=== PATIENT | female | born 1990 | race Caucasian/White ===

== ENCOUNTER 2017-01-26 03:34 | Emergency (ER) | payer OTHER ==
[~2017-01-26] VITALS: Ht 167.6 cm; Wt 136.3 kg
[~2017-01-26 03:34] MED LIST: Ibuprofen PO; PREN1TAB73 PO
[2017-01-26 03:36] VITALS: BP 180/105; PULSE 83; RESP 16; O2SAT 99
--- NOTE | 2017-01-26 03:50 | ED.REPORT ---
HPI-Back Pain Under 40 Date of Service Jan 26, 2017 ED Provider: Derek Ruby MD The patient is a 26 year old female five days with a history of a heart murmur and ADHD who presents to the ED with upper back pain onset yesterday. The pain radiates down her right side and is exacerbated by deep breathing. The patient also reports recent hypertension and insomnia. She denies cough, hemoptysis, fever, or other symptoms. The patient has used Ibuprofen and Hydrocodone, with no relief. Nursing Notes Stated Complaint: BACK PAIN Chief Complaint: Back Pain or Injury Nursing Notes Reviewed: Yes Allergies: Coded Allergies: cephalexin (Verified Allergy, Severe, Rash,Itching,SOB, 12/12/14) nitrofurantoin (Verified Allergy, Severe, N/V, THROAT SWELLING, 06/23/09) Scheduled Vit/Iron Fumarate/FA ( Vitamin Tablet) 1 Each Tablet 1 EACH PO DAILY Scheduled PRN ([Ibuprofen]) 800 MG TABLET 800 MG PO Q6 PRN PRN For Pain General Time Seen by MD: 03:42 Chief Complaint Thoracic pain Hx Obtained From: Patient Arrived By: Walk-in Sudden in Onset?: No Onset Occurred: Yesterday Symptom Duration: Since onset Caused by: Spontaneous/no mechanism Location: : Perispinal thoracic Quality: Painful Severity: Current: Moderate Severity: Maximum: Moderate Pertinent Negative: Relieved by nothing Recent Healthcare: Recent hospitalization Past Medical History Past Medical History Heart murmur ADHD Past Surgical History Kidney surgeries Ureter and bladder surgeries Smoking History Current Some Day Smoker Social History Other Social History: Lives with children Ambulatory Status Independent Review of Systems Review of Systems Note: + Recent hypertension Constitutional: Denies: Fever Respiratory: Denies: Hemoptysis, Non-productive cough, Shortness of breath GI: Denies: Diarrhea, Vomiting Musculoskeletal: Reports: Back pain (Upper, with radiation down right side) Complete sys rev & neg: except as marked. Psychiatric: Reports: Insomnia Physical Exam Initial Vital Signs Vital Signs (First) Date Time Temp Pulse Resp B/P Pulse Ox O2 Delivery O2 Flow Rate FiO2 01/26/17 03:36 36.8 83 16 180/105 99 Initial VS: Reviewed, Vital signs abnormal Head / Eyes: Atraumatic, Normocephalic ENT: Conjunctiva normal, No scleral icterus Neck: Supple, Full range of motion Respiratory: Breath sounds normal, Clear to auscultation, No respiratory distress Cardiovascular: Regular rate & rhythm, Heart sounds normal Skin: Warm, Dry, No cyanosis Psychiatric: Mood/affect normal, Behavior normal, Normal thought content General/Constitutional: Awake, Alert Behavior: Positive: Tearful Back: Inspection NL, Non-tender Neurologic: Oriented X3, Speech NL Lower Extremity / Pelvis / MS: Non-tender Symmetrical 1+ pitting edema bilateral ankles Interpretation & Diagnostics Lab Results Interpretation Result Diagram: 01/26/17 0425 01/26/17 0425 Test 01/26/17 04:25 01/26/17 05:32 White Blood Count 13.9th/mm3 (3.8-10.1) Red Blood Count 3.68mil/mm3 (3.90-5.20) Hemoglobin 9.5g/dL (12.0-15.6) Hematocrit 30.1% (35.0-46.0) Mean Corpuscular Volume 81.8fL (81-100) Mean Corpuscular Hemoglobin 25.8pg (27.0-35.0) Mean Corpuscular Hemoglobin Concent 31.6% (32.0-37.0) Red Cell Distribution Width 15.1% (12.3-15.4) Platelet Count 431bil/L (150-400) Neutrophils (%) (Auto) 70.5% (40-74) Lymphocytes (%) (Auto) 18.7% (14-46) Monocytes (%) (Auto) 6.0% (4-12) Eosinophils (%) (Auto) 3.2% (0-5) Basophils (%) (Auto) 0.4% (0-3) D-Dimer 1.44mg/L FEU (<0.50) Sodium Level 142mEq/L (134-144) Potassium Level 3.1mEq/L (3.5-5.2) Chloride Level 101mEq/L (97-108) Carbon Dioxide Level 23mmol/L (18-29) Blood Urea Nitrogen 8mg/dL (6-20) Creatinine 0.54mg/dL (0.57-1.00) Estimat Glomerular Filtration Rate 197mL/min (>59) Glucose Level 115mg/dL (60-99) Calcium Level 8.7mg/dL (8.5-10.1) Magnesium Level 1.7mg/dL (1.6-2.6) Total Bilirubin 0.2mg/dL (0.0-1.2) Aspartate Amino Transf (AST/SGOT) 19U/L (0-50) Alanine Aminotransferase (ALT/SGPT) 20U/L (0-32) Alkaline Phosphatase 136U/L (25-150) Total Protein 6.6g/dL (6.4-8.4) Albumin 3.2g/dL (3.4-5.0) Hold Purple Top Tube Received (Received) Hold Blue Top Tube Received (Received) Hold Red Top Tube Received (Received) Hold Meraux Top Tube Received (Received) Hold [place] Top Tube Received (Received) Lab Results Interpretation: Elevated white blood count, low potassium, anemia, and elevated d-dimer. X-Ray Chest Interpretation Chest Xray Interpretation: Normal exam View: AP & lat Interpretation / Wet Read by: Wet read ED physician Re-Eval/Medical Decision Med Decision/Clinical Course 26-year-old female who is 5 days and has sudden onset of pleuritic posterior chest pain. Chest x-ray is normal. D-dimer is positive. She is currently awaiting labs and CT chest angiogram PE protocol. Her care is being turned over at change of shift to Dr. Pryor. Source of Hx: Old records Re-Evaluation/Progress : Time of Eval: 05:31 Patient Status: Condition improved Re-Evaluation/Progress Note: Discussed with patient lab results and plan for CT with transfer of care to Dr. Pryor at change of shift. Patient agrees with plan for care and all questions were addressed. Counseled Regarding: Lab results Discharge & Departure Shift Change Sign-Out Patient Care Transferred: Yes (Dr. Pryor) Discussed Complaint(s): Yes Laboratory Evaluation: Lab evaluation discussed Imaging Studies: Ordered, not yet done Response to Therapy: Improved Impression: Primary Impression: Pleuritic chest pain Referrals: Noel Slater MD (PCP) Care Transferred to: Dr. Pryor Care Transferred at: 06:00 Nely Attestation Portions of this note were transcribed by Jeanne Miller. I, Dr. Ruby, personally performed the history, physical exam, and medical decision-making; I reviewed and confirmed the accuracy of the information in the transcribed note. Signed by: Nely Kincaid, 01/26/2017, 05:45 copies to: Noel Slater MD, Howard L MD Jan 26, 2017 03:50 JEANNE MILLER Jan 26, 2017 03:57
[2017-01-26 05:34] LABS: BASOPHILS % (AUTO) 0.4 % (0-3); EOSINOPHILS % (AUTO) 3.2 % (0-5); Mean Corpuscular Hemoglobin 25.8 pg (27.0-35.0); Mean Corpuscular Volume 81.8 fL (81-100); NEUTROPHILS % (AUTO) 70.5 % (40-74); Platelet Count 431 bil/L (150-400)
[2017-01-26 05:45] LABS: Magnesium 1.7 mg/dL (1.6-2.6)
[2017-01-26 06:39] VITALS: BP 160/82; PULSE 80; RESP 16; O2SAT 100
[2017-01-26] MEDS ORDERED: 0.9% Sodium Chloride 1,000 ML IV ONE (07:15)
[2017-01-26] MEDS ORDERED: Ketorolac 15 mg/mL Inj IVPUSH ONE (07:40)
[2017-01-26] MEDS ORDERED: Potassium Chloride 20 mEq SR Tablet PO ONE (07:45)
[2017-01-26 08:15] LABS: APPEARANCE,URINE HAZY (CLEAR,HAZY); COLOR,URINE STRAW (YELLOW); OCCULT BLOOD,URINE LARGE (NEGATIVE); PH,URINE 7.5 (5.0-8.0); UROBILINOGEN,URINE NORMAL (NORMAL)
--- NOTE | 2017-01-26 09:43 | DRSVH ---
PROCEDURE: X-RAY CHEST, TWO VIEWS ([id number]) INDICATIONS: 26 year-old female with right chest pain. TECHNIQUE: 2 views of the chest were acquired. COMPARISON: [facility], , CHEST 2VW, 12/12/2014, 18:36. [facility], , [place] EST 2VW, 01/30/2011, 20:53. [facility], , CHEST 2VW, 04/17/2008, 5:37. FINDINGS: Surgical changes and devices: None. Lungs and pleura: No pleural effusions or pneumothorax. Lungs are clear. Mediastinum: Mediastinal contours are normal. Heart size is normal. Bones and chest wall: No suspicious bony abnormalities. Soft tissues appear unremarkable. IMPRESSION: No acute cardiopulmonary disease. Dictated by: Paco Canada M.D. on 01/26/2017 at 9:40 Approved by: Paco Canada M.D. on 01/26/2017 at 9:41
--- NOTE | 2017-01-26 10:49 | DRSVH ---
PROCEDURE: CT ANGIO CHEST PULMONARY EMBOLISM ([id number]) INDICATIONS: chest pain, elev dimer, 5 day PP TECHNIQUE: After the administration of intravenous contrast, 2 mm thick sections acquired from the pulmonary api caridad to the posterior costophrenic angles. 3-dimensional maximum intensity projection (MIP) coronal a nd sagittal reformats were then acquired through the thorax. For radiation dose reduction, the follo wing was used: automated exposure control, adjustment of mA and/or kV according to patient size. COMPARISON: None. FINDINGS: Image quality: Mildly heterogeneous contrast opacification of the segmental pulmonary vessels Pulmonary arteries: Pulmonary arteries are normal in size, and demonstrate no intraluminal filling d efects to suggest central pulmonary embolism. Lungs and pleura: Lungs are clear. No pleural effusions or pneumothorax. Central and peripheral ai rways are patent. Mediastinum: Heart size is normal, without pericardial effusion. No mediastinal or hilar adenopathy . Thoracic aorta is normal in caliber and enhancement. Esophagus is normal in caliber, without hiat al hernia. Bones and chest wall: No suspicious bony lesions. Ribs and thoracic spine appear intact throughout. Thyroid gland unremarkable. No axillary or supraclavicular adenopathy. Abdomen: Bilateral adrenal gland hyperplasia is incidentally noted. IMPRESSION: No evidence of pulmonary embolism. No acute consolidation. Bilateral adrenal gland hyperplasia. Please correlate clinically Dictated by: Edvin Sebastian M.D. on 01/26/2017 at 10:43 Approved by: Edvin Sebastian M.D. on 01/26/2017 at 10:48
== END 2017-01-26 11:43 | disposition home or self-care (01) ==
LOC: SED 03:34
DX: R07.81 Pleurodynia (principal); E27.8 Other specified disorders of adrenal gland; F90.9 Attention-deficit hyperactivity disorder, unspecified type; F17.200 Nicotine dependence, unspecified, uncomplicated; Z88.1 Allergy status to other antibiotic agents; Z88.8 Allergy status to other drugs, medicaments and biological substances
CPT/HCPCS: 36415; 71020; 71275; 80053; 81000; 83735; 85025; 85378; 96374; 99285; J1885; Q9967

== ENCOUNTER 2017-03-13 12:57 | Day surgery (SDC) | payer OTHER ==
[~2017-03-13] VITALS: Ht 168.9 cm; Wt 134.1 kg
[2017-03-13] MEDS ORDERED: Lactated Ringer's 500 ML IV ONE (13:07)
[2017-03-13 13:33] VITALS: BP 162/90; PULSE 67; RESP 17; O2SAT 98
--- NOTE | 2017-03-13 14:36 | PCM.HPANE ---
Patient Data Surgeon Admitting Provider: Attending Provider:Malina Shayingham Anesthesia Primary Care Physician:Noel Slater MD Other Provider: Reason for Visit Blood Patch For Migraine Ht/WT & BMI Height (Feet): 5 Height (Inches): 6 Weight (Kilograms): 134.25 Body Mass Index 47.00 Allergies Coded Allergies: cephalexin (Verified Allergy, Severe, Rash,Itching,SOB, 12/12/14) nitrofurantoin (Verified Allergy, Severe, N/V, THROAT SWELLING, 06/23/09) Past Anesthesia History Anesthesia History: Positive for:: Anesthesia Reactions (nausea), Denies:: Fam Anesthesia Reaction, Fam Malignant Hypertherm, Malignant Hyperthermia Diabetes History Hx Diabetes?: No MRSA MRSA: No Medications Active Scripts [Ibuprofen] (Motrin)800 MG TABLET No Conflict [id number] Mg PO Q6 PRN For Pain # 30 TABLET Ref 3 Prov:Attila Miranda MD 02/26/14 Discontinued Reported Medications Vit/Iron Fumarate/FA ( Vitamin Tablet)1 Each Tablet1 Each PO DAILY 02/25/14 History History of ENT Problems?: No HEENT History: Denies:: Cataracts Glaucoma Hearing Problem Denture Type: None Teeth Condition: Within Normal Limits Hx of Heart Problems?: Yes Cardiovascular History: Positive for:: Heart Murmur (mild - scheduled for ECHO march 2017) Denies:: AICD Abdominal Aortic Aneurism Atrial Fibrillation Cardiac Surgery Chest Pain Congestive Heart Failure Coronary Artery Disease Edema Hypertension Irregular Heartbeat Pacemaker Peripheral Vascular Rheumatic Fever Thrombophlebitis Valvular Heart Disease Hx of Respiratory Problem?: Yes Respiratory History: Positive for:: Pneumonia (4 years ago) Denies:: Asthma COPD Chest Surgery Cough Dyspnea Emphysema Hemoptysis Pulmonary Embolism Tuberculosis Use of C-PAP Machine Hx Neurologic Problems?: No Hx of GI Problems?: No Hx of Problems?: No Genitourinary History: Positive for:: Urinary Tract Infection Female Hx: Denies:: Currently Endometriosis Pelvic Inflammatory Problems with Breasts? Skin History: Denies:: History Skin Disorders? Pressure Ulcers Hx Musculoskeletal Problems?: No Hx of Psycho/Social Problems?: No Hx Surgeries?: Yes (ureter and bladder surgeries) Hx Any Other Health Problems?: Yes Other History: Positive for:: Hospitalization ([facility]) Denies:: Cancer Endocrine Disease Thyroid Disease History Blood Transfusions: Positive for:: Accept Blood Products? Denies:: Blood Transfusions Hx Diabetes: No Hx Alcohol Use: NoHx Substance Use: Yes (on occassion marijuana) Smoking Status: Current Some Day Smoker Have You Smoked inLast 12 mo: Yes Stop/Bang S-Snoring: Do You Snore Loudly: No T-Tired: feel tired, fatigued: Yes O-Obsered: Observed not breath: No P-Blood Pressure: treated: No B- Body Mass Index > 35 kg/m2: Yes A- Age over 50: No N- Neck Large Circumference: No G- Gender Male: No OSIRIS Total Score: 2 Risk Assessment Category Category 1A: Patient has history of documented sleep apnea, and HAS NOT received any narcotic, sedative or anesthesia administration during this stay. Category 1B: Patient has history of documented sleep apnea, and HAS received any narcotic , sedative or anesthesia administration during this stay Category 2: Patient has SUSPECTED Obstructive Sleep Apnea, and HAS received any narcotic , sedative or anesthesia administration during this stay. Category 3: Patient has SUSPECTED Obstructive Sleep Apnea and HAS NOT received narcotic, sedative or anesthesia administration during this stay. Category 4: Outpatient in Procedural Areas with known sleep apnea or who screen positive for High Risk via the STOP/BANG questionnaire. Exam Exam General Appearance: Alert, Oriented X3, Cooperative, No Acute Distress HEENT/AIRWAY: MP 2 Lungs: Clear to Auscultation Heart: Exam Unremarkable Plan Impression Patient chart reviewed, patient interviewed and anesthestic plan with risks, benefits, and alternatives discussed, and informed consent obtained. Other Patient sitting up in bed pleasant and smiling, denies any headache. I spoke with patient extensively regarding her presentation of symptoms. I explained the pathophysiology behind a post dural puncture headache and the treatment for it, epidural blood patch. After discussion patient felt reassured that her symptoms were most likely not related to PDPH and elected not to have a blood patch. Petros Bedolla MD Mar 13, 2017 09:52
== END 2017-03-13 23:59 | disposition home or self-care (01) ==
LOC: SAS 12:57
PROVIDERS: ATTEND Anesthesiology
DX: G97.1 Other reaction to spinal and lumbar puncture (principal); Z53.8 Procedure and treatment not carried out for other reasons